=== PATIENT | male | born 1990 | race Two or more races ===

== ENCOUNTER 2019-11-20 22:34 | Emergency (ER) | payer SELFPAY ==
[~2019-11-20] VITALS: Ht 162.6 cm; Wt 64.0 kg
[2019-11-20 23:45] LABS: BASOPHILS # (AUTO) 0.03 x10^3/uL (0-0.1); BASOPHILS % (AUTO) 0 % (0-1); EOSINOPHILS # (AUTO) 0.11 x10^3/uL (0-0.4); EOSINOPHILS % (AUTO) 2 % (1-7); LYMPHOCYTES # (AUTO) 1.77 x10^3/uL (1-3.4); LYMPHOCYTES % (AUTO) 25 % (22-44); MD NO; MEAN CORPUSCULAR HEMOGLOBIN 30.3 pg (27.5-34.5); MEAN CORPUSCULAR HGB CONC 34.2 g/dL (33.2-36.2); MEAN CORPUSCULAR VOLUME 88.6 fL (81-97); MEAN PLATELET VOLUME 8.4 fL (7.4-10.4); MONOCYTES # (AUTO) 0.58 x10^3/uL (0.2-0.8); MONOCYTES % (AUTO) 8 % (2-9); NEUTROPHILS # (AUTO) 4.65 x10^3/uL (1.8-6.8); NEUTROPHILS % (AUTO) 65 % (42-75); PLATELET COUNT 306 x10^3/uL (130-400); RED BLOOD COUNT 5.03 x10^6/uL (4.38-5.82); RED CELL DISTRIBUTION WIDTH 12.8 % (9.4-14.8)
--- NOTE | 2019-11-20 23:55 | NUR ---
First contact with patient; patient presents to ER c/o difficulty breathing. He states he drank an energy drink earlier today at work and a beer when he got home from work. The difficulty breathing started after the beer. He also complained of palpitations that have since resolved. Patient is in NAD. Respirations even and unlabored.
[2019-11-20 23:56] LABS: ANION GAP 6 mmol/L (5-15); CALCIUM 8.5 mg/dL (8.5-10.1); CHLORIDE 105 mmol/L (98-107); CREATININE 1.07 mg/dL (0.7-1.3)
[2019-11-21 00:07] VITALS: BP 127/84
[2019-11-21] MEDS ORDERED: LORazepam 1MG TABLET ONE (00:28)
[2019-11-21] MEDS ORDERED: LORazepam 1MG TABLET PO ONE (00:30)
== END 2019-11-21 01:05 | disposition home or self-care (01) ==
LOC: ED 11-21 00:34
DX: R06.00 Dyspnea, unspecified (principal); F41.1 Generalized anxiety disorder
CPT/HCPCS: 36415; 71045; 80048; 82040; 85025; 93005; 99285

== ENCOUNTER 2020-06-02 20:37 | Emergency (ER) | payer BC, OTHER ==
[~2020-06-02] VITALS: Ht 160 cm; Wt 64.5 kg
[2020-06-02 20:41] VITALS: BP 136/79
[2020-06-02] MEDS ORDERED: OXYcodone/APAP 5/325MG TABLET ONE (21:13)
--- NOTE | 2020-06-02 21:22 | NUR ---
PT MEDICATED PER EMAR
[2020-06-02] MEDS ORDERED: OXYcodone/APAP 5/325MG TABLET PO ONE (21:30)
== END 2020-06-02 21:50 | disposition home or self-care (01) ==
LOC: ED 21:16
DX: F41.1 Generalized anxiety disorder (principal); H59.89 Other postprocedural complications and disorders of eye and adnexa, not elsewhere classified; H57.11 Ocular pain, right eye
CPT/HCPCS: 99283; Q0177